=== PATIENT | female | born 1965 | race Caucasian/White ===

== ENCOUNTER → 2017-01-04 | Outpatient (CLI) | payer BC | LOC: MAMO 12-28 09:20 | DX: Z12.31 Encounter for screening mammogram for malignant neoplasm of breast (principal) | CPT/HCPCS: G0202 ==

== ENCOUNTER 2022-03-30 17:17 | Emergency (ER) | payer BC ==
[~2022-03-30 17:17] MED LIST: MEDROL4 MG PO
[2022-03-30 19:45] LABS: BUN/CREATININE RATIO 19 (0-10)
[2022-03-30 23:17] LABS: HEMOGLOBIN 14.6 gm/dl (12.3-15.3); RED BLOOD COUNT 5.09 M/UL (4.00-5.10); WHITE BLOOD COUNT 9.4 K/UL (4.5-11.0)
[2022-03-31] MEDS ORDERED: KLOR-CON 1010 MEQ PO (00:24)
[2022-03-31] MEDS ORDERED: ANTIVERT25 M1 PO (08:50)
== END 2022-03-31 00:35 | disposition home or self-care (01) ==
LOC: ER1 17:17
PROVIDERS: Physician Assistant
DX: E87.6 Hypokalemia (principal); I10 Essential (primary) hypertension
CPT/HCPCS: 70450; 71045; 80053; 82550; 82553; 84439; 84443; 84484; 85025; 93005; 99284

== ENCOUNTER → 2022-04-06 | Outpatient (CLI) | payer BC ==
[~2022-04-06] MED LIST changes: +ANTIVERT25 M1 PO; +KLOR-CON 1010 MEQ PO
[2022-04-06 12:07] LABS: BUN/CREATININE RATIO 29 (0-10)
== END ==
LOC: LAB 11:22
PROVIDERS: Internal Medicine
DX: E87.6 Hypokalemia (principal)
CPT/HCPCS: 36415; 80048